=== PATIENT | male | born 1990 | race Caucasian/White ===

== ENCOUNTER 2017-09-15 11:44 | Emergency (ER) | payer OTHER, MEDICAID, SELFPAY ==
[2017-09-15 11:52] VITALS: BP 142/78; PULSE 99; RESP 20; TEMP 37.2; O2SAT 99; BMI 24.3
--- NOTE | 2017-09-15 12:06 | PC.NURSE ---
Pain in left jaw and behind left ear for 5 days - when it gets very painful he can't move his jaw to talk without increasing the pain - has broken teeth on that side - no swelling noted - not tender to the touch - currently able to open his mouth fully without an increase in pain.
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
== END 2017-09-15 13:09 | disposition home or self-care (01) ==
PROVIDERS: Emergency Provider Internal Medicine
DX: S16.1XXA Strain of muscle, fascia and tendon at neck level, initial encounter (principal)
CPT/HCPCS: 99282; 99283

== ENCOUNTER 2018-12-09 05:19 | Emergency (ER) | payer OTHER, SELFPAY ==
[2018-12-09 05:30] VITALS: BP 133/68; PULSE 96; RESP 18; TEMP 37.7; O2SAT 95; BMI 25.0
--- NOTE | 2018-12-09 05:36 | DI.RAD.S_ITS ---
PROCEDURE: XR CHEST 1V INDICATIONS: fever TECHNIQUE: One view of the chest was acquired. COMPARISON: None. FINDINGS: Surgical changes and devices: None. Lungs and pleura: Mild patchy medial bibasilar opacities, age unknown. No pleural effusions or pneumothorax. Mediastinum: Mediastinal contours appear normal. Heart size is normal. Bones and chest wall: No suspicious bony lesions. Overlying soft tissues appear unremarkable. IMPRESSION: Mild patchy bibasilar opacities potentially low-grade aspiration/atelectasis although cannot exclude early pneumonia in the absence prior studies. If there is persistent clinical diagnostic uncertainty, continued surveillance with short interval chest radiographs after treatment is recommended. Dictated by: Zachary Bunn M.D. on 12/09/2018 at 8:11 Approved by: Zachary Bunn M.D. on 12/09/2018 at 8:13
--- NOTE | 2018-12-09 05:48 | ED_ITS ---
HPI - Fever General Chief Complaint: Fever Stated Complaint: high fever for four days Time Seen by Provider: 12/09/18 05:20 Source: patient and family Mode of arrival: ambulatory Limitations: no limitations History of Present Illness HPI Narrative: 28-year-old male on immunized and otherwise healthy smoker presents with family and a chief complaint of high fever for the past few days. He is on immunized as he had rather significant allergic reactions to some of the immunizations and was told not to get any more. Patient states that he has a generalized headache that seems to intensify with an increase fever and improves as the fever is treated with Tylenol or Motrin. Additionally he has had some runny nose, nasal congestion and sore throat with difficulty swallowing. He has had a bit of a dry and hacking cough but denies any nausea, vomiting or diarrhea. He denies any abdominal pain nor dysuria, frequency or urgency MD complaint: fever Onset (ago): day(s) Temperature Source: oral Associated symptoms: myalgias, headache, rhinorrhea, nasal congestion, sore throat and cough Relieving factors: acetaminophen Treatments prior to arrival fever: acetaminophen Related Data Previous Rx's Medication Instructions Recorded cyclobenzaprine 10 mg PO Q8H PRN #14 tab 09/15/17 ibuprofen 800 mg PO Q8H #20 tab 09/15/17 doxycycline hyclate 100 mg PO BID #20 tab 12/09/18 Allergies Allergy/AdvReac Type Severity Reaction Status Date / Time No Known Drug Allergies Allergy Verified 12/09/18 05:44 Review of Systems Constitutional Reports chills, Reports fever(s), Reports headache(s), Denies lethargy and Denies weakness Eyes Denies change in vision, Denies eye discharge, Denies irritation and Denies loss of vision ENT Ears, Nose, Mouth, and Throat: Denies change in voice, Reports headache(s), Reports nasal congestion, Denies neck pain and Reports sore throat Cardiovascular Denies chest pain, Denies irregular heart rhythm, Denies lightheadedness, Denies palpitations, Denies dyspnea, Denies dyspnea on exertion and Denies orthopnea Respiratory Reports cough, Denies dyspnea, Denies dyspnea on exertion and Denies wheezing Gastrointestinal Gastrointestinal: Denies abdominal pain, Denies change in bowel habits, Denies diarrhea, Denies nausea and Denies vomiting Genitourinary Denies hematuria, Denies flank pain, Denies urinary incontinence and Denies urinary urgency Musculoskeletal Denies neck pain Integumentary/Breasts Denies pruritus, Denies erythema, Denies rash and Denies wounds Neurologic Denies confusion, Reports headache(s), Denies loss of vision and Denies weakness Psychiatric Denies anxiety, Denies confusion, Denies depression, Denies homicidal ideation and Denies suicidal ideation Endocrine Denies palpitations Hematologic/Lymphatic Denies easy bruising Allergic/Immunologic Denies wheezing [facility] Medical History Healthy adult male (Chronic) Social History (Updated 09/15/17 @ 15:16 by Farzana Aranda PA-C) Smoking Status: Current every day smoker alcohol intake: current Social History Smoking Status: Current every day smoker alcohol intake: current Exam Narrative Exam Narrative: GENERAL: [28] year old patient appears stated age. Well- nourished, well-developed patient, in mild distress. HEAD: Atraumatic. Normocephalic. EYES: Pupils equal round and reactive. Extraocular motions intact. No scleral icterus. No injection or drainage. ENT: Nose without bleeding, purulent drainage. Throat without erythema, tonsillar hypertrophy or exudate. Airway patent. NECK: Trachea midline. Non tender, no meningeal signs CARDIOVASCULAR: Regular rate and rhythm without murmurs, gallops, or rubs. RESPIRATORY: Clear to auscultation. Breath sounds equal bilaterally. No wheezes, rales, or rhonchi. GASTROINTESTINAL: Abdomen soft, non-tender, nondistended. EXTREMITIES: No edema or joint tenderness. BACK: Nontender without deformity or crepitance. No flank tenderness. NEURO: AOx3. SKIN: No rash or erythema of visible areas Initial Vital Signs Initial Vital Signs: Vital Signs Temperature 99.8 F H 12/09/18 05:30 Pulse Rate 96 H 12/09/18 05:30 Respiratory Rate 18 12/09/18 05:30 Blood Pressure 133/68 12/09/18 05:30 Pulse Oximetry 95 12/09/18 05:30 Course Orders Ordered: Discontinued Medications Doxycycline Hyclate (Vibramycin) 100 mg PO NOW ONE Stop: 12/09/18 08:17 Last Admin: 12/09/18 08:19 Dose: 100 mg Sodium Chloride (Normal Saline 0.9%) 1,000 mls @ 1,000 mls/hr IV BOLUS ONE Stop: 12/09/18 06:35 Last Infusion: 12/09/18 08:13 Dose: 0 mls/hr Infusion: 12/09/18 07:27 Dose: 0 mls/hr Admin: 12/09/18 06:01 Dose: 1,000 mls/hr Ketorolac Tromethamine (Toradol) 15 mg IV NOW ONE Stop: 12/09/18 05:37 Last Admin: 12/09/18 06:00 Dose: 15 mg Reevaluation(s) Reevaluation #1: Patient has complete resolution of symptoms after the above- stated therapies Vital Signs - 8 hr 12/09/18 05:30 Temperature 99.8 F H Pulse Rate 96 H Respiratory Rate 18 Blood Pressure 133/68 Pulse Oximetry 95 MDM - Fever Lab Data Result diagrams: 12/09/18 05:56 12/09/18 05:56 Lab Results 12/09/18 12/09/18 12/09/18 Range/Units 05:56 05:56 05:56 WBC 8.3 (4.5-11.0) X10^3/uL RBC 4.96 (4.5-5.9) X10^6/uL Hgb 15.6 (13.5-17.5) g/dL Hct 42.8 (41-53) % MCV 86.2 (80-100) fL MCH 31.5 (26-34) PG MCHC 36.5 H (30-36) % RDW 12.5 (11.6-14.8) % Plt Count 142 L (150-400) X10^3/uL Neut % (Auto) 76.2 H (50-75) % Lymph % (Auto) 12.1 L (25-40) % [place] % (Auto) 10.9 (3-14) % Eos % (Auto) 0.5 L (2-4) % Baso % (Auto) 0.3 (0-2) % Neut # (Auto) 6300 (7765-1393) /uL Lymph # (Auto) 1000 L (6797-7445) /uL [place] # (Auto) 900 (0-900) /uL Eos # (Auto) 0 (0-450) /uL Baso # (Auto) 0 (0-100) /uL Sodium 137 (137-145) mmol/L Potassium 3.5 (3.4-5.1) mmol/L Chloride 99 (98-107) mmol/L Carbon Dioxide 26 (22-32) mmol/L BUN 7 L (9-20) mg/dL Creatinine 0.80 (0.66-1.25) mg/dL Estimated GFR > 60.0 (>60) mL/min BUN/Creatinine Ratio 8.8 (6-22) Glucose 124 H (70-100) mg/dL Lactate (0.7-2.1) mmol/L Calcium 9.4 (8.4-10.2) mg/dL Total Bilirubin 0.8 (0.2-1.3) mg/dL AST 21 (17-59) IU/L ALT 21 (21-72) IU/L Alkaline Phosphatase 54 (38-126) U/L Total Protein 7.5 (6.3-8.2) g/dL Albumin 4.5 (3.5-5.0) g/dL Globulin 3.0 (1.7-4.1) g/dL Albumin/Globulin Ratio 1.5 (1.0-2.8) Procalcitonin 0.16 (<0.5) ng/mL Chlamy pneumoniae PCR (Not Detect) Adenovirus (PCR) (Not Detect) B.parapertussis DNA PCR (Not Detect) Coronavirus OC43 (PCR) (Not Detect) Coronavirus HKU1 (PCR) (Not Detect) Coronavirus 229E (PCR) (Not Detect) Coronavirus NL63 (PCR) (Not Detect) Monoscreen Negative (Negative) Human Metapneumovir PCR (Not Detect) Influenza Type A (PCR) (Not Detect) Influenza Type B (PCR) (Not Detect) M. pneumoniae (PCR) (Not Detect) Parainfluenza 1 (PCR) (Not Detect) Parainfluenza 2 (PCR) (Not Detect) Parainfluenza 3 (PCR) (Not Detect) Parainfluenza 4 (PCR) (Not Detect) RSV (PCR) (Not Detect) Entero/Rhino (PCR) (Not Detect) 12/09/18 12/09/18 Range/Units 05:56 05:56 WBC (4.5-11.0) X10^3/uL RBC (4.5-5.9) X10^6/uL Hgb (13.5-17.5) g/dL Hct (41-53) % MCV (80-100) fL MCH (26-34) PG MCHC (30-36) % RDW (11.6-14.8) % Plt Count (150-400) X10^3/uL Neut % (Auto) (50-75) % Lymph % (Auto) (25-40) % [place] % (Auto) (3-14) % Eos % (Auto) (2-4) % Baso % (Auto) (0-2) % Neut # (Auto) (4223-9349) /uL Lymph # (Auto) (1154-2967) /uL [place] # (Auto) (0-900) /uL Eos # (Auto) (0-450) /uL Baso # (Auto) (0-100) /uL Sodium (137-145) mmol/L Potassium (3.4-5.1) mmol/L Chloride (98-107) mmol/L Carbon Dioxide (22-32) mmol/L BUN (9-20) mg/dL Creatinine (0.66-1.25) mg/dL Estimated GFR (>60) mL/min BUN/Creatinine Ratio (6-22) Glucose (70-100) mg/dL Lactate 1.0 (0.7-2.1) mmol/L Calcium (8.4-10.2) mg/dL Total Bilirubin (0.2-1.3) mg/dL AST (17-59) IU/L ALT (21-72) IU/L Alkaline Phosphatase (38-126) U/L Total Protein (6.3-8.2) g/dL Albumin (3.5-5.0) g/dL Globulin (1.7-4.1) g/dL Albumin/Globulin Ratio (1.0-2.8) Procalcitonin (<0.5) ng/mL Chlamy pneumoniae PCR Not detected (Not Detect) Adenovirus (PCR) Not detected (Not Detect) B.parapertussis DNA PCR Not detected (Not Detect) Coronavirus OC43 (PCR) Not detected (Not Detect) Coronavirus HKU1 (PCR) Not detected (Not Detect) Coronavirus 229E (PCR) Not detected (Not Detect) Coronavirus NL63 (PCR) Not detected (Not Detect) Monoscreen (Negative) Human Metapneumovir PCR Not detected (Not Detect) Influenza Type A (PCR) Not detected (Not Detect) Influenza Type B (PCR) Not detected (Not Detect) M. pneumoniae (PCR) Detected H (Not Detect) Parainfluenza 1 (PCR) Not detected (Not Detect) Parainfluenza 2 (PCR) Not detected (Not Detect) Parainfluenza 3 (PCR) Not detected (Not Detect) Parainfluenza 4 (PCR) Not detected (Not Detect) RSV (PCR) Not detected (Not Detect) Entero/Rhino (PCR) Not detected (Not Detect) Point of Care Testing Rapid Strep A Negative Discharge Plan Departure Patient Disposition: Home Clinical Impression: Mycoplasma pneumonia Qualifiers: Laterality: unspecified laterality Lung location: unspecified part of lung Qualified Code(s): J15.7 - Pneumonia due to Mycoplasma pneumoniae Discharge Date/Time: 12/09/18 08:41 Interventions: ED Discharge Assessment Last Done: 12/09/18 08:15 Instructions: DI for Fever (Symptom) -- Adult Activity Restrictions/Additional Instructions: *You have been diagnosed with [mycoplasma] *What to do: *Take medications as directed *Follow up with your primary care provider in 2-3 days, call for an appointment. Let them know you were seen in the Emergency Department and that we ask that you be seen in follow up *Return to ER if you should have any new, worsening or concerning symptoms Prescriptions: New doxycycline hyclate 100 mg tablet 100 mg PO BID Qty: 20 RF: 0 No Action cyclobenzaprine 10 mg tablet 10 mg PO Q8H PRN (Reason: muscle spasm) Qty: 14 RF: 0 ibuprofen 800 mg tablet 800 mg PO Q8H Qty: 20 RF: 0
[2018-12-09] MEDS: KETOROLAC 60 MG/2 ML VIAL 15 MG IV (06:00)
[2018-12-09] MEDS: SODIUM CHLORIDE 0.9% 1,000 ML 1000 ML IV (06:01)
[2018-12-09 06:10] LABS: Alanine Aminotransferase 21 IU/L (21-72); Albumin 4.5 g/dL (3.5-5.0); Albumin Globulin Ratio 1.5 (1.0-2.8); Alkaline Phosphatase 54 U/L (38-126); Aspartate Aminotransferase 21 IU/L (17-59); BUN Creatinine Ratio 8.8 (6-22); Bilirubin Total 0.8 mg/dL (0.2-1.3); Blood Urea Nitrogen 7 mg/dL (9-20); Calcium 9.4 mg/dL (8.4-10.2); Carbon Dioxide 26 mmol/L (22-32); Chloride 99 mmol/L (98-107); Estimated Glomerular Filt Rate > 60.0 mL/min (>60); Glucose 124 mg/dL (70-100); HEMOLYSIS 25 (0-50); Potassium 3.5 mmol/L (3.4-5.1); Sodium 137 mmol/L (137-145); Total Protein 7.5 g/dL (6.3-8.2)
[2018-12-09 06:18] LABS: Monotest Negative (Negative)
[2018-12-09 06:25] LABS: Add Manual Diff / Slide Review NO; Basophils Absolute Auto 0 /uL (0-100); Basophils Percent Auto 0.3 % (0-2); Eosinophils Absolute Auto 0 /uL (0-450); Eosinophils Percent Auto 0.5 % (2-4); Hematocrit 42.8 % (41-53); Hemoglobin 15.6 g/dL (13.5-17.5); Lymphocytes Absolute Auto 1000 /uL (1100-4500); Lymphocytes Percent Auto 12.1 % (25-40); Mean Corpuscular HGB Conc 36.5 % (30-36); Mean Corpuscular Hemoglobin 31.5 PG (26-34); Mean Corpuscular Volume 86.2 fL (80-100); Monocytes Absolute Auto 900 /uL (0-900); Monocytes Percent Auto 10.9 % (3-14); Neutrophils Absolute Auto 6300 /uL (1500-7000); Neutrophils Percent Auto 76.2 % (50-75); Platelet Count 142 X10^3/uL (150-400); Red Blood Cell Count 4.96 X10^6/uL (4.5-5.9); Red Cell Distribution Width 12.5 % (11.6-14.8); White Blood Cell Count 8.3 X10^3/uL (4.5-11.0)
[2018-12-09 06:33] LABS: Procalcitonin 0.16 ng/mL (<0.5)
[2018-12-09 07:43] LABS: Adenovirus Not Detected (Not Detect); Coronavirus 229E Not Detected (Not Detect); Coronavirus HKU1 Not Detected (Not Detect); Coronavirus NL 63 Not Detected (Not Detect); Coronavirus OC43 Not Detected (Not Detect); Human Metapneumovirus Not Detected (Not Detect); Human Rhinovirus/Enterovirus Not Detected (Not Detect); Influenza A Not Detected (Not Detect); Influenza B Not Detected (Not Detect); Parainfluenza Virus 1 Not Detected (Not Detect); Parainfluenza Virus 2 Not Detected (Not Detect); Parainfluenza Virus 3 Not Detected (Not Detect); Parainfluenza Virus 4 Not Detected (Not Detect)
[2018-12-09 07:44] LABS: Bordetella pertussis Not Detected (Not Detect); Chlamydophila pneumoniae Not Detected (Not Detect); Mycoplasma pneumoniae Detected (Not Detect); Respiratory Syncytial Virus Not Detected (Not Detect)
[2018-12-09 08:08] VITALS: BP 121/67; PULSE 88; RESP 15; O2SAT 94
[2018-12-09 08:11] VITALS: TEMP 37.3
[2018-12-09 08:15] VITALS: BP 126/72; PULSE 78; RESP 13; TEMP 37.7; O2SAT 99
[2018-12-09] MEDS: DOXYCYCLINE HYCLATE 100 MG TABLET PO (08:19)
--- NOTE | 2018-12-09 08:29 | PC.NURSE ---
0800, went into get pt tempurature since came in for fever, temp 100 temporal, father sitting at bedside, critical of not getting antibiotics before he leaves, no order noted, told them we would look into it. apparetnly a verbal that was not noted. spoke with ellen, cleared up, given, iv taken out, father critical again on how tape and iv taken out.
== END 2018-12-09 08:41 | disposition home or self-care (01) ==
PROVIDERS: Emergency Provider Emergency Medicine
DX: J15.7 Pneumonia due to Mycoplasma pneumoniae (principal)
CPT/HCPCS: 36591; 71045; 80053; 83605; 84145; 85025; 86318; 87040; 87633; 87880; 96361; 96374; 99283; 99284; J1885